=== PATIENT | female | born 1935 | race Caucasian/White ===

== ENCOUNTER 2024-12-11 14:45 | Inpatient (IN) | payer MEDICARE ==
[2024-12-11 18:30] VITALS: BMI 18.2
[2024-12-11] MEDS: HYDROcodone/Acetaminophen 10/325 mg Tablet PO PRN (20:26)
[2024-12-12] MEDS ORDERED: Mirtazapine 15 MG TAB PO SCH (09:00)
[2024-12-12] MEDS: Enoxaparin 30 MG (0.3 mL) SYRINGE SC SCH (09:24)
[2024-12-12] MEDS: Cholecalciferol 1,000 UNITS (25 MCG) TAB PO SCH (09:24)
[2024-12-12] MEDS: Aspirin Chewable 81 MG TAB PO SCH (09:24)
[2024-12-12] MEDS: Mirabegron ER 25 MG ER.TAB PO SCH (09:24)
[2024-12-12] MEDS: PARoxetine 20 MG TAB PO SCH (09:24)
[2024-12-12] MEDS: Senokot 8.6 MG TAB PO SCH (09:25)
[2024-12-12] MEDS: Pantoprazole 40 MG DR.TAB PO SCH (09:25)
[2024-12-12] MEDS: Mirtazapine 15 MG TAB PO SCH (20:25)
[2024-12-12] MEDS: Methocarbamol 500 MG TAB PO PRN (20:54)
[2024-12-13 12:07] VITALS: BMI 18.2
[2024-12-14] MEDS: FLU (Fluad Triv) 25-26 (65UP)PF 45 MCG/0.5 ML Syringe IM ONE (10:03)
[2024-12-15] MEDS: Acetaminophen 325 MG TAB PO PRN (16:44)
[2024-12-18] MEDS: HYDROcodone/Acetaminophen 10/325 mg Tablet PO PRN (08:49)
[2024-12-20] MEDS: HYDROcodone/Acetaminophen 10/325 mg Tablet PO SCH (18:33)
[2024-12-25] MEDS: Senokot S 8.6-50 MG TAB PO PRN (11:58)
[2024-12-25] MEDS: Bisacodyl 10 MG SUPP PR PRN (16:32)
[2024-12-27] MEDS: HYDROcodone/Acetaminophen 5/325 mg Tablet PO SCH (18:09)
[2024-12-28 12:18] LABS: #Basophils 0.1 thou/uL (0.0-0.2); #Eosinophils 0.2 thou/uL (0.0-0.7); #Lymphocytes 2.2 thou/uL (1.20-3.40); #Monocytes 1.0 thou/uL (0.11-0.59); #Neutrophils 4.9 thou/uL (1.40-6.50); %Basophils 1.1 % (0.0-1.0); %Eosinophils 2.7 % (0.0-10.0); %Lymphocytes 26.4 % (21.0-51.0); %Monocytes 12.0 % (0.0-10.0); %Neutrophils 57.9 % (42.0-75.0); Hematocrit 29.2 % (36.0-47.0); Hemoglobin 9.6 g/dL (12.0-16.0); Mean Corpuscular Hemoglobin 32.1 pg (27.0-31.0); Mean Corpuscular Volume 97.5 fl (78.0-98.0); Platelet Count 421 10x3/uL (130-400); Red Blood Cell (RBC) Count 2.99 mill/uL (4.20-5.40); White Blood Cell (WBC) Count 8.4 10x3/uL (4.8-10.8)
[2024-12-28 12:27] LABS: ALT (SGPT) 7 U/L (Less than 34); AST (SGOT) 18 U/L (11-34); Albumin 3.1 g/dL (3.1-4.5); Alkaline Phosphatase 133 U/L (40-110); Anion Gap 15 mmol/L (10-20); BUN (Urea Nitrogen) 18 mg/dL (9.8-20.1); Bilirubin, Total 0.2 mg/dL (0.3-1.2); Calc. Creatinine Clearance 43 mL/min (70-130); Calcium 8.8 mg/dL (7.8-10.44); Carbon Dioxide 28 mmol/L (23-31); Chloride 96 mmol/L (98-107); Globulin 3.7 g/dL (2.4-3.5); Glucose 116 mg/dL (83-110); Potassium 4.2 mmol/L (3.5-5.1); Sodium 135 mmol/L (136-145)
[2024-12-28 17:56] VITALS: BP 138/62; TEMP 98.4
== END 2024-12-28 18:30 | disposition short-term general hospital (02) | DRG 560 ==
LOC: UNDOADMIN 14:50 → BURMED 14:50
PROVIDERS: ADMIT Family Medicine; ATTEND Family Medicine
PROC: F07Z9ZZ Gait Training/Functional Ambulation Treatment (ICD-10-PCS; principal; 2024-12-11)
DX: S72.143D Displaced intertrochanteric fracture of unspecified femur, subsequent encounter for closed fracture with routine healing (principal); I47.19 Other supraventricular tachycardia; Z66 Do not resuscitate; I10 Essential (primary) hypertension; E78.5 Hyperlipidemia, unspecified; F32.A Depression, unspecified; M06.89 Other specified rheumatoid arthritis, multiple sites; I73.9 Peripheral vascular disease, unspecified; M81.0 Age-related osteoporosis without current pathological fracture; K21.9 Gastro-esophageal reflux disease without esophagitis; K59.00 Constipation, unspecified; Z98.890 Other specified postprocedural states; Z85.3 Personal history of malignant neoplasm of breast; Z98.1 Arthrodesis status; Z90.710 Acquired absence of both cervix and uterus; Z79.899 Other long term (current) drug therapy; Z79.82 Long term (current) use of aspirin; Z91.81 History of falling
CPT/HCPCS: 36415; 72170; 74018; 74176; 80053; 85025; J1650; Q0162

== ENCOUNTER 2025-01-03 17:44 | Inpatient (IN) | payer MEDICARE ==
[2025-01-04 16:27] VITALS: BMI 18.6
[2025-01-04] MEDS ORDERED: Senokot S 8.6-50 MG TAB PO PRN (17:32)
[2025-01-04] MEDS ORDERED: Enoxaparin 30 MG (0.3 mL) SYRINGE SC ONE (17:35)
[2025-01-04] MEDS: HYDROcodone/Acetaminophen 5/325 mg Tablet PO PRN (18:26)
[2025-01-04] MEDS: Mirtazapine 15 MG TAB PO SCH (20:18)
[2025-01-04] MEDS: Methocarbamol 500 MG TAB PO PRN (20:18)
[2025-01-05] MEDS: Mirabegron ER 25 MG ER.TAB PO SCH (09:00)
[2025-01-05] MEDS: Aspirin 81 mg Enteric Coated Tablet PO SCH (09:00)
[2025-01-05] MEDS: Pantoprazole 40 MG DR.TAB PO SCH (09:01)
[2025-01-05] MEDS: PARoxetine 20 MG TAB PO SCH (09:01)
[2025-01-05] MEDS: Cholecalciferol 1,000 UNITS (25 MCG) TAB PO SCH (09:01)
[2025-01-05 17:19] VITALS: BMI 18.6
[2025-01-06] MEDS: HYDROcodone/Acetaminophen 5/325 mg Tablet PO SCH (08:46)
[2025-01-06] MEDS: HYDROcodone/Acetaminophen 10/325 mg Tablet PO SCH (11:03)
[2025-01-06] MEDS ORDERED: HYDROcodone/Acetaminophen 5/325 mg Tablet PO SCH (12:00)
[2025-01-06] MEDS ORDERED: HYDROcodone/Acetaminophen 10/325 mg Tablet PO SCH ×2 (14:00→15:00)
[2025-01-07 05:58] LABS: #Basophils 0.1 thou/uL (0.0-0.2); #Eosinophils 0.2 thou/uL (0.0-0.7); #Lymphocytes 4.8 thou/uL (1.20-3.40); #Monocytes 0.9 thou/uL (0.11-0.59); #Neutrophils 6.8 thou/uL (1.40-6.50); %Basophils 1.1 % (0.0-1.0); %Eosinophils 1.9 % (0.0-10.0); %Lymphocytes 37.3 % (21.0-51.0); %Monocytes 7.1 % (0.0-10.0); %Neutrophils 52.6 % (42.0-75.0); Hematocrit 35.0 % (36.0-47.0); Hemoglobin 10.7 g/dL (12.0-16.0); Mean Corpuscular Hemoglobin 30.0 pg (27.0-31.0); Mean Corpuscular Volume 98.1 fl (78.0-98.0); Platelet Count 457 10x3/uL (130-400); Red Blood Cell (RBC) Count 3.57 mill/uL (4.20-5.40); White Blood Cell (WBC) Count 12.9 10x3/uL (4.8-10.8)
[2025-01-07] MEDS: Calcium Carbonate 600 MG + Vit D TAB PO SCH (08:13)
[2025-01-07] MEDS ORDERED: PNEUMOC 20-VAL CONJ-DIP CRM/PF 0.5 ML SYRINGE IM ONE (18:45)
[2025-01-07] MEDS ORDERED: FLU (Fluad Triv) 25-26 (65UP)PF 45 MCG/0.5 ML Syringe IM ONE (18:45)
[2025-01-08] MEDS: Acetaminophen 325 MG TAB PO PRN (20:59)
[2025-01-08] MEDS: Melatonin 3 MG TAB PO PRN (21:00)
[2025-01-13] MEDS: HYDROcodone/Acetaminophen 5/325 mg Tablet PO PRN (15:18)
[2025-01-14 05:16] LABS: Anion Gap 15 mmol/L (10-20); BUN (Urea Nitrogen) 14 mg/dL (9.8-20.1); Calc. Creatinine Clearance 48 mL/min (70-130); Calcium 8.9 mg/dL (7.8-10.44); Carbon Dioxide 25 mmol/L (23-31); Chloride 101 mmol/L (98-107); Glucose 111 mg/dL (83-110); Potassium 4.3 mmol/L (3.5-5.1); Sodium 137 mmol/L (136-145)
[2025-01-14 05:22] LABS: Hematocrit 34.0 % (36.0-47.0); Hemoglobin 10.5 g/dL (12.0-16.0); MDiff Complete? YES; Mean Corpuscular Hemoglobin 30.1 pg (27.0-31.0); Mean Corpuscular Volume 97.4 fl (78.0-98.0); Platelet Adequacy Comment Appears Increased; Platelet Count 474 10x3/uL (130-400); Red Blood Cell (RBC) Count 3.49 mill/uL (4.20-5.40); White Blood Cell (WBC) Count 14.4 10x3/uL (4.8-10.8)
[2025-01-19] MEDS ORDERED: PNEUMOC 20-VAL CONJ-DIP CRM/PF 0.5 ML SYRINGE IM ONE (12:45)
[2025-01-19] MEDS: FLU (Fluad Triv) 25-26 (65UP)PF 45 MCG/0.5 ML Syringe IM ONE (13:05)
[2025-01-22 13:24] VITALS: BP 139/63; TEMP 98.3
== END 2025-01-22 13:05 | disposition home health service (06) | DRG 945 ==
LOC: BURMED 01-04 16:00
PROVIDERS: ADMIT Family Medicine; ATTEND Family Medicine
PROC: F07Z9ZZ Gait Training/Functional Ambulation Treatment (ICD-10-PCS; principal; 2025-01-04)
PROC: 3E0234Z Introduction of Serum, Toxoid and Vaccine into Muscle, Percutaneous Approach (ICD-10-PCS; 2025-01-09)
DX: R53.1 Weakness (principal); F33.1 Major depressive disorder, recurrent, moderate; E78.5 Hyperlipidemia, unspecified; M06.9 Rheumatoid arthritis, unspecified; I73.9 Peripheral vascular disease, unspecified; Z96.641 Presence of right artificial hip joint; K59.00 Constipation, unspecified; K59.03 Drug induced constipation; T40.2X5A Adverse effect of other opioids, initial encounter; Z90.710 Acquired absence of both cervix and uterus; Z98.42 Cataract extraction status, left eye; Z98.890 Other specified postprocedural states; Z85.3 Personal history of malignant neoplasm of breast; Z87.81 Personal history of (healed) traumatic fracture
CPT/HCPCS: 36415; 80048; 85025; 90653; S0179